=== PATIENT | female | born 2000 | race Caucasian/White ===

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

== ENCOUNTER → 2022-12-01 | Outpatient (REF) | payer OTHER ==
[2022-12-04 19:14] LABS: TOTAL PROTEIN,RANDOM URINE 101.6 MG/DL (0.0-14.0)
[2022-12-04 19:18] LABS: CREATININE,RANDOM URINE 77.8 MG/DL
== END ==
LOC: M LAB REF 17:16
PROVIDERS: ATTEND Internal Medicine Nephrology
DX: Q87.81 Alport syndrome (principal)

== ENCOUNTER → 2023-02-01 | Outpatient (REF) | payer OTHER ==
[2023-02-01 19:03] LABS: TOTAL PROTEIN,RANDOM URINE 92.9 MG/DL (0.0-14.0)
[2023-02-01 19:08] LABS: CREATININE,RANDOM URINE 152.9 MG/DL
== END ==
LOC: M LAB REF 17:33
PROVIDERS: ATTEND Internal Medicine Nephrology
DX: Q87.81 Alport syndrome (principal)